=== PATIENT | female | born 1955 | race Caucasian/White ===

== ENCOUNTER → 2017-10-21 | Outpatient (CLI) | payer BC ==
[2016-11-17 10:33] VITALS: BP 115/64
[~2017-10-21] MED LIST: ASPIRIN 81M81 MG/TA2 PO; COQ-1030 MG PO; GALZIN50 MG PO; METOPROLOL SUCC25 M1 PO; POTASSIUM99 M3 PO; PRALUENT P150 MG/1 M SQ; VITAMIN D32000 UNIT PO; XANAX0.5 M1 PO; ZOFRAN4 M2 PO; ZYRTEC ALLERGY10 MG PO
== END ==
LOC: RAD 09:09
DX: M47.896 Other spondylosis, lumbar region (principal); M51.17 Intervertebral disc disorders with radiculopathy, lumbosacral region; M48.07 Spinal stenosis, lumbosacral region

== ENCOUNTER → 2018-03-09 | Outpatient (CLI) | payer BC ==
[2016-11-17 10:33] VITALS: BP 115/64
== END ==
LOC: LAB 12:43
DX: R30.0 Dysuria (principal)

== ENCOUNTER → 2018-06-01 | Outpatient (CLI) | payer BC ==
[2016-11-17 10:33] VITALS: BP 115/64
== END ==
LOC: LAB 17:29
DX: R30.0 Dysuria (principal)

== ENCOUNTER → 2018-06-18 | Outpatient (CLI) | payer BC ==
[2016-11-17 10:33] VITALS: BP 115/64
== END ==
LOC: RAD 07:23
DX: I70.0 Atherosclerosis of aorta (principal); R31.9 Hematuria, unspecified
CPT/HCPCS: Q9967

== ENCOUNTER → 2018-07-29 | Outpatient (CLI) | payer BC ==
[2016-11-17 10:33] VITALS: BP 115/64
== END ==
LOC: LAB 06:55
DX: E78.5 Hyperlipidemia, unspecified (principal); Z79.899 Other long term (current) drug therapy

== ENCOUNTER → 2018-10-19 | Outpatient (CLI) | payer BC ==
[2016-11-17 10:33] VITALS: BP 115/64
== END ==
LOC: LAB 07:00
DX: R53.83 Other fatigue (principal)

== ENCOUNTER → 2019-03-15 | Outpatient (CLI) | payer BC ==
[2016-11-17 10:33] VITALS: BP 115/64
== END ==
LOC: LAB 06:51
DX: I65.23 Occlusion and stenosis of bilateral carotid arteries (principal); I10 Essential (primary) hypertension; I25.10 Atherosclerotic heart disease of native coronary artery without angina pectoris; E78.2 Mixed hyperlipidemia; Z79.899 Other long term (current) drug therapy

== ENCOUNTER → 2019-07-08 | Outpatient (CLI) | payer BC ==
[2016-11-17 10:33] VITALS: BP 115/64
== END ==
LOC: LAB 06:55
DX: E78.49 Other hyperlipidemia (principal)

== ENCOUNTER → 2020-01-31 | Outpatient (CLI) | payer BC ==
[2016-11-17 10:33] VITALS: BP 115/64
== END ==
LOC: LAB 07:01
DX: E78.49 Other hyperlipidemia (principal)

== ENCOUNTER → 2020-09-10 | Outpatient (CLI) | payer BC ==
[~2020-09-10] MED LIST changes: +CRANBERRY200 MG PO; +DAILY VALUE1 EACH PO; +QUERCETIN1 POW PO; +TURMERIC 500 M1 EACH PO; +VITAMIN C500 M6 PO
== END ==
LOC: LAB 06:46
DX: E78.49 Other hyperlipidemia (principal)

== ENCOUNTER 2020-11-12 11:03 | Outpatient (RCR) | payer BC ==
[~2020-11-12 11:03] MED LIST changes: -CRANBERRY200 MG PO; -DAILY VALUE1 EACH PO; -QUERCETIN1 POW PO; -TURMERIC 500 M1 EACH PO; -VITAMIN C500 M6 PO
[2021-01-15] MEDS ORDERED: DAILY VALUE1 EACH PO (15:17)
[2021-01-15] MEDS ORDERED: VITAMIN C500 M6 PO (15:17)
[2021-01-15] MEDS ORDERED: QUERCETIN1 POW PO (15:18)
[2021-01-15] MEDS ORDERED: CRANBERRY200 MG PO (15:19)
[2021-01-15] MEDS ORDERED: TURMERIC 500 M1 EACH PO (15:19)
== END 2021-02-10 | disposition still patient (30) ==
LOC: PT
DX: M54.17 Radiculopathy, lumbosacral region (principal)

== ENCOUNTER → 2020-11-22 | Outpatient (CLI) | payer BC ==
[~2020-11-22] MED LIST changes: +CRANBERRY200 MG PO; +DAILY VALUE1 EACH PO; +QUERCETIN1 POW PO; +TURMERIC 500 M1 EACH PO; +VITAMIN C500 M6 PO
[2020-11-22 12:55] LABS: ALBUMIN 4.5 g/dL (3.4-4.8)
[2020-11-22 12:56] LABS: POTASSIUM 4.2 mmol/L (3.5-5.1)
[2020-11-22 12:57] LABS: CALCIUM 10.7 mg/dL (8.3-10.5)
[2020-11-22 12:58] LABS: TOTAL PROTEIN 7.6 g/dL (6.2-8.1)
[2020-11-22 13:04] LABS: MAGNESIUM 2.18 mg/dL (1.60-2.60)
== END ==
LOC: LAB 12:35
PROVIDERS: Physician Assistant
DX: R25.2 Cramp and spasm (principal)

== ENCOUNTER → 2020-12-04 | Outpatient (CLI) | payer BC | LOC: RAD 08:25 | DX: M48.061 Spinal stenosis, lumbar region without neurogenic claudication (principal); M48.07 Spinal stenosis, lumbosacral region; M47.27 Other spondylosis with radiculopathy, lumbosacral region; M47.26 Other spondylosis with radiculopathy, lumbar region ==

== ENCOUNTER → 2021-01-14 | Outpatient (CLI) | payer BC | LOC: LAB 12:09 | DX: U07.1 COVID-19 (principal) ==

== ENCOUNTER → 2021-01-15 | Outpatient (CLI) | payer BC ==
[~2021-01-15] VITALS: Ht 152.4 cm; Wt 61.8 kg
[2021-01-15] VITALS (8 sets, daily range): BP systolic 113–131; BP diastolic 32–68
== END ==
LOC: AMSURD 13:52
DX: U07.1 COVID-19 (principal); E66.9 Obesity, unspecified; I25.10 Atherosclerotic heart disease of native coronary artery without angina pectoris
CPT/HCPCS: M0247; Q0247

== ENCOUNTER → 2021-05-03 | Outpatient (CLI) | payer BC ==
[2021-05-03 08:23] LABS: BASO # 0.05 K/mm3 (0.02-0.10); EOS # 0.18 K/mm3 (0.04-0.40); EOS % 2.9 % (1.0-5.0); HEMATOCRIT 43.9 % (37.0-47.0); HEMOGLOBIN 14.8 g/dL (12.5-16.0); LYMPH# 2.06 K/mm3 (1.50-4.00); MEAN CELL VOLUME 93 fl (78-100); MEAN CORPUSCULAR HEMOGLOBIN 31 pg (27-31); MEAN CORPUSCULAR HGB CONC 34 g/dL (33-37); MEAN PLATELET VOLUME 9.4 fl (7.4-10.4); MONO # 0.53 K/mm3 (0.20-0.80); NEU # 3.44 K/mm3 (1.40-6.50); PLATELET COUNT 169 K/mm3 (130-400); RED BLOOD COUNT 4.72 M/mm3 (4.10-5.30); RED CELL DISTRIBUTION WIDTH 11.9 % (11.5-14.5); WHITE BLOOD COUNT 6.3 K/mm3 (4.8-10.8)
[2021-05-03 08:26] LABS: POTASSIUM 4.2 mmol/L (3.5-5.1)
[2021-05-03 08:27] LABS: ALBUMIN 4.3 g/dL (3.4-4.8)
[2021-05-03 08:28] LABS: CALCIUM 9.7 mg/dL (8.3-10.5)
[2021-05-03 08:29] LABS: TOTAL PROTEIN 6.8 g/dL (6.2-8.1)
[2021-05-03 08:31] LABS: TOTAL BILIRUBIN 0.6 mg/dL (0.2-1.2)
[2021-05-03 08:35] LABS: MAGNESIUM 2.04 mg/dL (1.60-2.60)
[2021-05-03 22:28] LABS: ESTRADIOL <10 pg/mL (()); T3 FREE 2.8 pg/mL (1.7-3.7)
[2021-05-06 17:49] LABS: PROGESTERONE <0.1 ng/mL (())
== END ==
LOC: LAB 07:28
DX: E78.5 Hyperlipidemia, unspecified (principal); E34.9 Endocrine disorder, unspecified; I10 Essential (primary) hypertension

== ENCOUNTER → 2022-12-19 | Outpatient (CLI) | payer BC | LOC: LAB 06:55 | DX: I25.119 Atherosclerotic heart disease of native coronary artery with unspecified angina pectoris (principal); E78.2 Mixed hyperlipidemia ==